=== PATIENT | male | born 1955 | race Caucasian/White ===

== ENCOUNTER 2023-01-11 06:31 | Day surgery (SDC) | payer MEDICARE, OTHER ==
[~2023-01-11] VITALS: Ht 165.1 cm; Wt 55.9 kg
[2023-01-11] MEDS ORDERED: LIDOCAINE 4% 50 ML SOLUTION TP ONE (06:32)
[2023-01-11] MEDS ORDERED: LIDOCAINE 2% 11 ML JELLY TP ONE (06:32)
[2023-01-11] MEDS ORDERED: BENZOCAINE 20% 50 MCG/SPRAY 57 GM TP ONE (06:32)
[2023-01-11 07:19] LABS: COVID AG,FIA SOURCE NASAL SWAB
[2023-01-11] MEDS ORDERED: BENZ-227 PO (07:29)
[2023-01-11] MEDS ORDERED: DEXT15LI4 PO (07:31)
[2023-01-11] MEDS ORDERED: LORA10TA7 PO (07:31)
[2023-01-11] MEDS ORDERED: TRIP1TAB14 PO (07:31)
[2023-01-11] MEDS ORDERED: MIDAZOLAM HCL 2 MG/2 ML VIAL ONE (07:36)
[2023-01-11] MEDS ORDERED: FentaNYL CITRATE PF 100 MCG/2 ML VIAL ONE (07:37)
[2023-01-11] MEDS ORDERED: SODIUM CHLORIDE 0.9% 1,000 ML ONE (07:50)
[2023-01-11] MEDS ORDERED: SODIUM CHLORIDE 0.9% 1,000 ML IV ONE (08:00)
[2023-01-11] MEDS ORDERED: MethylPREDNISolone SOD SUCC 125 MG/2 ML VIAL ONE (09:18)
[2023-01-11] MEDS ORDERED: MethylPREDNISolone SOD SUCC 125 MG/2 ML VIAL IVP ONE (09:45)
== END 2023-01-11 12:27 | disposition home or self-care (01) ==
LOC: SURGERY 06:31
PROVIDERS: ATTEND Internal Medicine Critical Care Medicine
DX: R05.3 Chronic cough (principal); R91.1 Solitary pulmonary nodule; J98.09 Other diseases of bronchus, not elsewhere classified; J98.8 Other specified respiratory disorders; Z20.822 Contact with and (suspected) exposure to COVID-19; Z91.013 Allergy to seafood; I10 Essential (primary) hypertension; Z98.890 Other specified postprocedural states; Z79.899 Other long term (current) drug therapy
CPT/HCPCS: 31623; 88112; 87101; 87220; 87070; 31624; 71045; 87015; 87426; 87206; J3010; J2250; J2930; Q9967; J7030; C9803; Z7610

== ENCOUNTER 2025-01-06 06:57 | Day surgery (SDC) | payer OTHER ==
[~2025-01-06] VITALS: Ht 165.1 cm; Wt 54.5 kg
[~2025-01-06 06:57] MED LIST: BENZ-227 PO; DEXT15LI31 PO; LORA10TA7 PO; TRIP1TAB14 PO
[2025-01-06] MEDS ORDERED: ALBUTEROL SULFATE 2.5 MG/0.5 ML NEB SOLUTION NEB ONE (06:58)
[2025-01-06] MEDS ORDERED: LIDOCAINE 4% 50 ML SOLUTION TP ONE (06:58)
[2025-01-06] MEDS ORDERED: BENZOCAINE 20% 50 MCG/SPRAY 57 GM TP ONE (06:58)
[2025-01-06] MEDS ORDERED: LIDOCAINE 2% 11 ML JELLY TP ONE (06:58)
[2025-01-06] MEDS ORDERED: SODIUM CHLORIDE 0.9% 1,000 ML ONE (07:40)
[2025-01-06] MEDS: SODIUM CHLORIDE 0.9% 1,000 ML IV ONE (08:12)
[2025-01-06] MEDS ORDERED: MIDAZOLAM HCL 2 MG/2 ML VIAL ONE (08:50)
[2025-01-06] MEDS ORDERED: FentaNYL CITRATE PF 100 MCG/2 ML VIAL ONE (08:50)
[2025-01-06 10:10] VITALS: PULSE 80; RESP 18; O2SAT 97
[2025-01-06] MEDS ORDERED: MethylPREDNISolone SOD SUCC 125 MG/2 ML VIAL ONE (10:19)
[2025-01-06] MEDS: MethylPREDNISolone SOD SUCC 125 MG/2 ML VIAL IVP ONE (10:51)
== END 2025-01-06 12:55 | disposition home or self-care (01) ==
LOC: SURGERY 06:57
PROVIDERS: ATTEND Internal Medicine Critical Care Medicine
DX: R05.3 Chronic cough (principal); J38.4 Edema of larynx; B37.0 Candidal stomatitis; K76.0 Fatty (change of) liver, not elsewhere classified; J45.909 Unspecified asthma, uncomplicated; R04.2 Hemoptysis; Z91.013 Allergy to seafood; Z98.890 Other specified postprocedural states
CPT/HCPCS: 31623; 87206; 87101; 87220; 87070; 88108; 31624; 71045; 87015; J3010; J2250; J2919; J7030; J7613; Z7610